=== PATIENT | female | born 1950 | race Caucasian/White ===

== ENCOUNTER 2016-08-14 10:38 | Emergency (ER) | payer SELFPAY ==
[~2016-08-14] VITALS: Ht 149.9 cm; Wt 65.0 kg
[~2016-08-14 10:38] MED LIST: TYLE500T PO
[2016-08-14 10:40] VITALS: BP 145/94; PULSE 89; RESP 20; TEMP 98.4; O2SAT 97
[2016-08-14 11:19] VITALS: BP 165/81; PULSE 95; RESP 16; O2SAT 97
[2016-08-14] MEDS ORDERED: TIMO0.5S30 EACH EYE (11:27)
--- NOTE | 2016-08-14 11:30 | PD ---
HPI Chief Complaint: Fall Time Seen by Provider: 11:24 Travel History International Travel<30 days: No Contact w/Intl Traveler<30days: No Traveled to known affect area: No History of Present Illness HPI 66-year-old female presents to the emergency department for evaluation of left leg pain after she slipped and fell sometime last night. She is unsure what time it was. She states she slipped and water and fell. She denies hitting her head or any LOC. She denies any neck pain or back pain. No chest pain or abdominal pain. She reports nausea, but no vomiting. She reports pain in the entire left leg and inability to walk due to the pain. The patient reports history of glaucoma and uses eyedrops. She denies any other chronic medical problems. She takes no other prescribed medications. She is not on anticoagulants. Patient denies any other complaints at this time. PFSH Past Medical History Hx Anticoagulant Therapy: No Cardiovascular Problems: Yes Chemotherapy: No Cerebrovascular Accident: No Diabetes: No Respiratory: No Past Surgical History Hysterectomy: No Social History Alcohol Use: Yes (moonshine) Tobacco Use: Yes (2 PPD) Substance Use: No Allergies-Medications (Allergen,Severity, Reaction): Coded Allergies: Codeine (Verified Allergy, Intermediate, TREMORS, 08/14/16) Reported Meds & Prescriptions Reported Meds & Active Scripts Active Reported Timolol Opth Drops 0.5 % Soln 1 Drop EACH EYE BID Review of Systems Except as stated in HPI: all other systems reviewed are Neg Physical Exam Narrative GENERAL: Well-nourished, well-developed female patient, afebrile. SKIN: Focused skin assessment warm/dry. No lacerations or abrasions. HEAD: Normocephalic. Atraumatic. EYES: No scleral icterus. No injection or drainage. NECK: Supple, trachea midline. No JVD or lymphadenopathy. CARDIOVASCULAR: Regular rate and rhythm without murmurs, gallops, or rubs. Bilateral pedal pulses 2+. RESPIRATORY: Breath sounds equal bilaterally. No accessory muscle use. Lungs sounds are clear to auscultation. GASTROINTESTINAL: Abdomen soft, non-tender, nondistended. MUSCULOSKELETAL: No cyanosis, or edema. Patient has tenderness over lateral left hip, left thigh, left knee, left calf, left foot. Patient has full sensation to distal left lower extremity. BACK: Nontender without obvious deformity. No CVA tenderness. No midline spinal tenderness. Data Data Last Documented VS Vital Signs Date Time Temp Pulse Resp B/P Pulse Ox O2 Delivery O2 Flow Rate FiO2 08/14/16 11:19 95 16 165/81 97 Room Air 08/14/16 10:40 98.4 Orders Hip, Uni(Ap&Lat) W Ap Pelvis (08/14/16 ) Femur (Ap & Lat/2vws) (08/14/16 ) Tibia/Fibula (Ap/Lat) (08/14/16 ) Foot, Complete ([id number]) (08/14/16 ) Ibuprofen (Motrin) (08/14/16 12:30) Methocarbamol (Robaxin) (08/14/16 12:30) MDM Medical Decision Making Medical Screen Exam Complete: Yes Emergency Medical Condition: Yes Medical Record Reviewed: Yes Interpretation(s) X-ray of the left hip with pelvis - CONCLUSION: No acute disease. X-ray left femur CONCLUSION: Normal examination for a patient of this age. X-ray left tibia/fibula CONCLUSION: No acute disease. X-ray left foot CONCLUSION: No acute disease. Differential Diagnosis Fracture versus dislocation versus contusion versus sprain versus strain Narrative Course 66-year-old female presents to the emergency department for evaluation of left leg pain after a slip and fall that occurred last night. She states that she laid on the floor for only 20 minutes and was able to get herself up. X-ray of the left hip with pelvis, left femur, left tib-fib, left foot are ordered and pending. X-ray of the left hip with pelvis shows no acute disease. X-ray of the left femur is normal. X-ray of the left tib/fib shows no acute disease. X-ray of the left foot shows no acute disease. Patient is provided Natanael bandage to left ankle/foot. She is instructed ice and elevate. She'll also be given crutches. Patient was discharged with a prescription for ibuprofen and Robaxin. She is encouraged to follow-up with primary care physician. She is instructed on return symptoms. She verbalizes agreement and understanding.\ The patient was discharged in stable condition with instructions, including return instructions and follow up instructions. Diagnosis Primary Impression: Sprain of left foot Qualified Code: S93.602A - Sprain of left foot, initial encounter Additional Impressions: Left knee sprain Qualified Code: S83.92XA - Sprain of left knee, unspecified ligament, initial encounter Fall Qualified Code: W19.XXXA - Fall, initial encounter Referrals: Primary Care Physician call for appointment Patient Instructions: Foot Sprain (ED), General Instructions, Knee Sprain (ED) Additional Instructions: Take ibuprofen as instructed as needed with food for pain. Take Robaxin as directed as needed. Ice for 20 minutes on, 20 mins off. Wear Natanael bandage to use crutches as needed for support. Follow-up with your primary care physician. Return to the emergency department for any acute worsening of symptoms. Med/Other Pt SpecificInfo: Prescription(s) given Scripts Methocarbamol (Robaxin)750 Mg Jud077 Mg PO TID PRN (MUSCLE SPASM) #21 TAB Ref 0 Prov:Neelima Meza 08/14/16 Ibuprofen 600 Mg Vvi032 Mg PO TID PRN (PAIN SCALE 1 TO 10) #21 TAB Ref 0 Prov:Neelima Meza 08/14/16 Disposition: 01 DISCHARGE HOME Condition: Stable Neelima Meza Aug 14, 2016 11:29
--- NOTE | 2016-08-14 11:42 | RADRPT ---
EXAM DATE/TIME: 08/14/2016 11:43 [facility] COMPARISON: No previous studies available for comparison. INDICATIONS : Fall. Left hip and pelvic pain. MEDICAL HISTORY : None. SURGICAL HISTORY : None. ENCOUNTER: Initial ACUITY: 2 days PAIN SCORE: 10/10 LOCATION: Left pelvis FINDINGS: Examination of the left hip was performed with AP Pelvis. The primary and secondary trabecular patte rn of the femoral neck is intact. The hip joint is of normal width without significant sclerosis or bony hypertrophy. The acetabulum is grossly intact. CONCLUSION: No acute disease. Saulo Ness MD on August 14, 2016 at 11:40 Board Certified Radiologist. This report was verified electronically.
--- NOTE | 2016-08-14 12:23 | RADRPT ---
EXAM DATE/TIME: 08/14/2016 11:48 [facility] COMPARISON: No previous studies available for comparison. INDICATIONS : Fall. Left femur pain. MEDICAL HISTORY : None. SURGICAL HISTORY : None. ENCOUNTER: Initial ACUITY: 2 days PAIN SCORE: 10/10 LOCATION: Left femur FINDINGS: Two view examination of the left femur demonstrates no evidence of fracture or dislocation. Bony min eralization is normal. The soft tissue structures are intact. CONCLUSION: Normal examination for a patient of this age. Saulo Ness MD on August 14, 2016 at 12:22 Board Certified Radiologist. This report was verified electronically.
--- NOTE | 2016-08-14 12:24 | RADRPT ---
EXAM DATE/TIME: 08/14/2016 12:01 [facility] COMPARISON: No previous studies available for comparison. INDICATIONS : Fall. Left foot pain. MEDICAL HISTORY : None. SURGICAL HISTORY : None. ENCOUNTER: Initial ACUITY: 2 days PAIN SCORE: 10/10 LOCATION: Left foot FINDINGS: Three view examination of the left foot demonstrates no soft tissue swelling, dislocation, or fractur e. The tarsal bones appear intact. The interphalangeal and metatarsophalangeal joints are intact. The calcaneus is intact. Bony mineralization is normal. CONCLUSION: No acute disease. Saulo Ness MD on August 14, 2016 at 12:22 Board Certified Radiologist. This report was verified electronically.
--- NOTE | 2016-08-14 12:24 | RADRPT ---
EXAM DATE/TIME: 08/14/2016 11:52 [facility] COMPARISON: No previous studies available for comparison. INDICATIONS : Fall. Left tibia pain. MEDICAL HISTORY : None. SURGICAL HISTORY : None. ENCOUNTER: Initial ACUITY: 1 day PAIN SCORE: 10/10 LOCATION: Left tibia FINDINGS: Two view examination of the left tibia demonstrates no evidence of fracture or dislocation. Bony min eralization is normal. The soft tissue structures are intact.CONCLUSION: No acute disease. Saulo Ness MD on August 14, 2016 at 12:22 Board Certified Radiologist. This report was verified electronically.
[2016-08-14] MEDS ORDERED: IBUPROFEN 600 MG TAB PO ONE (12:30)
[2016-08-14] MEDS ORDERED: METHOCARBAMOL 500 MG TAB PO ONE (12:30)
[2016-08-14] MEDS ORDERED: ROBA750T PO (12:37)
[2016-08-14] MEDS ORDERED: IBUP-232 PO (12:37)
== END 2016-08-14 13:27 | disposition home or self-care (01) ==
LOC: NEPD 10:38
DX: S93.602A Unspecified sprain of left foot, initial encounter (principal); S83.92XA Sprain of unspecified site of left knee, initial encounter; R11.0 Nausea; H40.9 Unspecified glaucoma; F17.210 Nicotine dependence, cigarettes, uncomplicated; W01.0XXA Fall on same level from slipping, tripping and stumbling without subsequent striking against object, initial encounter; Y93.9 Activity, unspecified; Y92.9 Unspecified place or not applicable; Y99.8 Other external cause status
CPT/HCPCS: 73502; 73552; 73590; 73630; 99283; E0113